=== PATIENT | male | born 1960 | race Caucasian/White ===

== ENCOUNTER 2017-02-28 13:02 | Outpatient (CLI) | payer BC ==
--- NOTE | 2017-02-28 15:29 | DIAGNOSTIC IMAGING REPORT ---
PROCEDURE: MR UPPER EXTREMITY W/O CONT-RT INDICATION: RT ROTATOR CUFF WEAKNESS TECHNIQUE: PD and PD fat sat axial, T1 and PD fat sat coronal, PD and STIR sagittal sequences through the shoulder. COMPARISON: None. FINDINGS: Rotator cuff: There is a full-thickness tear in the anterior distal fibers of the supraspinatus tendon measuring about 10 mm in AP diameter with about 14 mm of maximal tendon retraction. The anterior supraspinatus fibers are redundant. Undersurface irregularity and tendinopathy of the critical zone and infraspinatus fibers. There is severe undersurface tendinopathy and probable fraying of the subscapularis tendon. Superficial fibers and transverse humeral ligament are intact. Biceps tendon: There is thickening and intrinsic intermediate signal within the intra-articular biceps tendon. The tendon maintains a normal course. There is a longitudinal tear of the proximal extra-articular portion and fluid in the tendon sheath (series 103 images 15-17). The rotator interval structures appear intact. Osseous structures and articular surfaces: The acromion is type 2 and demonstrates mild undersurface irregularity without significant spur formation. There is soft tissue hypertrophy at the AC joint, mild edema and subcortical cystic changes on both sides of the joint, and irregularity of the distal clavicle. Multiple subcortical cystic changes are seen in the lateral humeral head. Marrow signal is otherwise normal. The distance between the humeral head and undersurface of the coracoid process is mildly narrowed, measuring approximately 11 mm. Mild diffuse chondromalacia in the glenoid fossa and humeral head without focal full-thickness defect. Labral ligamentous complex: In the absence of intra-articular contrast, labrum is only partially evaluated. There may be a tiny labral tear along the posterior aspect (series 103 image 14), and a questionable tear along the inferior aspect (series 105 image 12). Supporting ligaments of the humeral head otherwise appear normal. Fluid, soft tissues, and joint space: Mild atrophy of the anterior portion of the supraspinatus muscle and of fluid surrounding the anterior supraspinatus myotendinous junction. There is a small to moderate subacromial subdeltoid bursal effusion. No muscular edema. The neurovascular bundle appears normal. No glenohumeral joint effusion. IMPRESSION: 1. Full-thickness anterior supraspinatus rotator cuff tear with some retraction of the tendon. Mild anterior supraspinatus muscle atrophy suggests this could be chronic. 2. Undersurface tendinopathy and probable fraying of the subscapularis. This may be due to subcoracoid impingement. 3. Intra-articular biceps tendinopathy and extra-articular longitudinal biceps tendon tear. 4. Questionable small posterior inferior labral tears, incompletely evaluated without the aid of intra-articular contrast.
== END 2017-02-28 23:00 ==
LOC: MRI SRH 13:02
DX: M75.21 Bicipital tendinitis, right shoulder (principal); R93.7 Abnormal findings on diagnostic imaging of other parts of musculoskeletal system